=== PATIENT | female | born 1990 | race Caucasian/White ===

== ENCOUNTER 2016-09-06 20:40 | Emergency (ER) | payer OTHER ==
[2016-09-06 20:49] VITALS: O2SAT 97
--- NOTE | 2016-09-06 22:43 | EDPHY ---
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 This was with a shows knife at work. This is a clean knife. Moderately painful with palpation or movement. Mild bleeding noted. No difficulty flexing or extending the finger. No numbness or tingling. No weakness. No injury elsewhere. No pulsatile blood flow described. She is up-to-date on her tetanus as of 2013. No other associated complaints or modifying factors. Right-hand dominant. TIME OF INJURY: Less than 8 hours ago TETANUS STATUS: 2014 REVIEW OF SYSTEMS: Ten systems reviewed and are negative unless otherwise noted in the HPI EXAMINATION General Appearance: Alert, no distress Head: normocephalic, atraumatic Cardiovascular: Pulses normal throughout. Symmetric radial pulses 2+. Brisk cap refill Neurological: A&O, sensory symmetric, strength symmetric. Excellent strength of the interossei. Skin: Warm and dry. 1.5 cm laceration of the left thumb, over the radial aspect of the thumb. No exposure of the flexor tensor tendons. No foreign body. Extremities: Tender over the area of laceration only. There is full flexion extension of the thumb. There is full opposition, abduction and abduction of the thumb. No deficits. DIFFERENTIAL DIAGNOSES: Including but not limited to laceration, laceration complication, laceration with tendinous injury, laceration with foreign body MDM: 9:45 p.m. Superficial laceration left thumb. There is no evidence of tendon involvement of the extensor or flexor apparatus. She is neurovascular intact. I have applied a digital block. Proceed with irrigation closure. She is up-to-date on tetanus. 10:10 p.m. Initial digital block was not completely successful. I have administered more local anesthetic. Proceed with irrigation and closure. 11:10 p.m. Left thumb laceration that has been repaired without complication. She is neurovascular intact. There is no evidence of tendon injury. This is a work related injury, thus we stressed the importance of following up at the worker's compensation designated clinic tomorrow. She understands the necessity of this. She has return to emergency department precautions. She is discharged home neurovascular intact in stable condition. PROCEDURE: Digital Block Indication: Finger laceration Consent: Verbal Location: Left thumb Anesthesia: Lidocaine 1% plain, 0.25% Marcaine plain, 5mL Description: Base of the left thumb was prepped with chlorhexidine. The above solution was injected at the base of the thumb and onto the posterior aspect of the thumb. Complications: None PROCEDURE: Laceration repair Consent: Verbal Location: Left thumb Length of repair: 1.5 cm Complexity: Simple Layer involvement: Single Anesthesia: Digital block and local administration Irrigation: Extensive Debridement: None Procedure description: Following good anesthesia, the wound was copiously irrigated. Wound bed was explored and there is no foreign body noted. Wound borders were approximated well with good hemostasis. Tolerated well without complication. Suture/Staple material: 5-0 Prolene, 3 simple interrupted sutures Wound care: Routine as discussed Suture/Staple removal: 7-10 Days SUTURE STAPLE REMOVAL: 7-10 days ED Precautions: Worsening pain. Erythema, edema, cyanosis, pallor, paresthesia or anesthesia. SUPERVISION: This patient was independently evaluated without direct examination by the attending physician. Case was discussed with attending physician. Source: Patient - Personal History LMP (Females 10-55): 1-7 Days Ago Current Tetanus/Diphtheria Vaccine: Yes Tetanus Vaccine Date: 2013 - Medical/Surgical History Hx Asthma: No Hx Chronic Respiratory Disease: No Hx Diabetes: No Hx Cardiac Disease: No Hx Renal Disease: No Hx Cirrhosis: No Hx Alcoholism: No Hx HIV/AIDS: No Hx Splenectomy or Spleen Trauma: No Other PMH: none - Social History Smoking Status: Light smoker Constitutional: Initial Vital Signs Temperature (C) 97.3 F 09/06/16 20:47 Heart Rate 99 09/06/16 20:47 Respiratory Rate 15 09/06/16 20:47 Blood Pressure 133/90 H 09/06/16 20:47 O2 Sat (%) 97 09/06/16 20:47 O2 Delivery Mode Room Air Allergies/Adverse Reactions: No Known Allergies Allergy (Unverified 09/06/16 20:47) Home Medications: Medication Instructions Recorded NK [No Known Home Meds] 09/06/16 Departure - Departure Disposition: Home, Routine, Self-Care Clinical Impression: Laceration of thumb without complication Qualifiers: Encounter type: initial encounter Laterality: left Qualified Code(s): S61.012A - Laceration without foreign body of left thumb without damage to nail, initial encounter Condition: Good Instructions: Care For Your Stitches (ED), Laceration (ED) Additional Instructions: 1. Daily wound care as discussed 2. Follow up with worker's compensation Clinic 3. Return to the ER for any worsening symptoms, redness, swelling, fever, difficulty flexing or extending the finger Referrals: NONE *PRIMARY CARE P,. [Primary Care Provider] - As per Instructions Kenya Chu MD [[facility] [place] Primary Care Provider] - As per Instructions Stand Alone Forms: Work Comp Follow Up
[2016-09-06 23:29] VITALS: BP 128/76; PULSE 84; RESP 16; TEMP 97.7
== END 2016-09-06 23:29 | disposition home or self-care (01) ==
PROC: 0HQGXZZ Repair Left Hand Skin, External Approach (ICD-10-PCS; principal; 2016-09-06)
DX: S61.012A Laceration without foreign body of left thumb without damage to nail, initial encounter (principal); F17.200 Nicotine dependence, unspecified, uncomplicated; W26.0XXA Contact with knife, initial encounter; Y92.69 Other specified industrial and construction area as the place of occurrence of the external cause; Y99.0 Civilian activity done for income or pay